=== PATIENT | male | born 1970 | race Hispanic/Latino ===

== ENCOUNTER 2017-05-28 22:47 | Emergency (ER) | payer SELFPAY ==
--- NOTE | 2017-05-29 00:17 | Emergency Department Report ---
ED Seizure HPI - General Chief Complaint: Seizure Stated Complaint: SEIZURE Time Seen by Provider: 05/29/17 00:12 Source: patient Mode of arrival: Ambulatory Limitations: No Limitations - History of Present Illness Initial Comments: Patient is a 47 years old male history of epilepsy on valproic acid came with one episode of seizure, patient fell and hit his head he sustained a laceration to his left cheek. Patient is back to normal. Patient stated that he is not taking his medication because is too expensive for him. MD Complaint: seizure -: minutes(s) Description of Episode: loss of consciousness, tonic-clonic movement, post- event confusion Witnessed:: Yes Trauma: Yes (head and face) Seizure History: known seizure disorder Place: home Possible Precipitating Event: head injury Associated Symptoms: denies other symptoms - Related Data Previous Rx's Medication Instructions Recorded Last Taken Type Cephalexin [Keflex] 500 mg PO Q8HR #28 cap 05/29/17 Unknown Rx Divalproex Sodium [Depakote] 500 mg PO DAILY #30 tablet. 05/29/17 Unknown Rx Ondansetron [Zofran Odt] 4 mg PO Q8HR PRN #14 tab.rapdis 05/29/17 Unknown Rx traMADol [Ultram 50 MG tab] 50 mg PO Q4HR PRN #14 tablet 05/29/17 Unknown Rx Allergies Allergy/AdvReac Type Severity Reaction Status Date / Time No Known Allergies Allergy Verified 05/29/17 00:47 ED Review of Systems ROS: Stated complaint: SEIZURE Other details as noted in HPI Comment: All other systems reviewed and negative Constitutional: denies: chills, fever Respiratory: denies: cough, orthopnea, shortness of breath Gastrointestinal: denies: abdominal pain, nausea, vomiting, diarrhea, constipation, hematemesis Genitourinary: denies: urgency, dysuria, frequency Musculoskeletal: denies: back pain, joint swelling Neurological: denies: headache, weakness, numbness, paresthesias ED Past Medical Hx - Past Medical History Additional medical history: epilepsy - Surgical History Additional Surgical History: R ankle - Social History Smoking Status: Current Every Day Smoker Substance Use Type: Alcohol - Medications Home Medications: Home Medications Medication Instructions Recorded Confirmed Last Taken Type Cephalexin [Keflex] 500 mg PO Q8HR #28 cap 05/29/17 Unknown Rx Divalproex Sodium [Depakote] 500 mg PO DAILY #30 tablet. 05/29/17 Unknown Rx Ondansetron [Zofran Odt] 4 mg PO Q8HR PRN #14 tab.greg 05/29/17 Unknown Rx traMADol [Ultram 50 MG tab] 50 mg PO Q4HR PRN #14 tablet 05/29/17 Unknown Rx ED Physical Exam - General Limitations: No Limitations General appearance: alert, in no apparent distress - Head Head exam: Present: other (5 cm laceration to the left cheek) - ENT ENT exam: Present: mucous membranes moist - Neck Neck exam: Present: normal inspection, full ROM. Absent: tenderness, meningismus - Respiratory Respiratory exam: Present: normal lung sounds bilaterally. Absent: wheezes, rales, rhonchi - Cardiovascular Cardiovascular Exam: Present: tachycardia - GI/Abdominal GI/Abdominal exam: Present: soft. Absent: tenderness, guarding, rebound, rigid , mass, bruit, pulsatile mass, hernia - Extremities Exam Extremities exam: Present: normal inspection, full ROM, normal capillary refill - Back Exam Back exam: Present: normal inspection, full ROM. Absent: tenderness, CVA tenderness (R), CVA tenderness (L) - Neurological Exam Neurological exam: Present: alert, oriented X3, CN II-XII intact, normal gait - Skin Skin exam: Present: warm, intact, normal color ED Course Vital Signs 05/28/17 05/29/17 22:56 00:54 Pulse Rate 110 H Respiratory 18 18 Rate Blood Pressure 177/118 O2 Sat by Pulse 98 Oximetry - Laceration /Wound Repair Cheek Wound Location: face Wound Length (cm): 5 Wound's Depth, Shape: irregular, flap, contused tissue Wound Explored: no foreign body removed Irrigated w/ Saline (ccs): 100 Betadine Prep?: Yes Anesthesia: 1% Lidocaine Volume Anesthetic (ccs): 5 Wound Debrided: minimal Wound Repaired With: sutures Suture Size/Type: 5:0 Number of Sutures: 7 Layer Closure?: No Sterile Dressing Applied?: Yes ED Medical Decision Making - Radiology Data Radiology results: report reviewed CT head/CT facial bone no acute abnormality Critical care attestation.: If time is entered above; I have spent that time in minutes in the direct care of this critically ill patient, excluding procedure time. ED Disposition Clinical Impression: Seizure, Laceration Disposition: [id number] TO HOME OR SELFCARE Is pt being admited?: No Condition: Stable Instructions: Suture Care (ED), Laceration (ED), Epilepsy (ED) Prescriptions: Cephalexin [Keflex] 500 mg PO Q8HR #28 cap Divalproex Sodium [Depakote] 500 mg PO DAILY #30 tablet. Ondansetron [Zofran Odt] 4 mg PO Q8HR PRN #14 tab.rapdis PRN Reason: Nausea And Vomiting traMADol [Ultram 50 MG tab] 50 mg PO Q4HR PRN #14 tablet PRN Reason: Pain
[2017-05-29] MEDS ORDERED: XYLOCAINE 2%/ EPI 1:200,000 INFILTRATI ONE (00:44)
[2017-05-29] MEDS ORDERED: XYLOCAINE 2% INFILTRATI ONE (00:45)
[2017-05-29] MEDS ORDERED: NACL 0.9% 500 ML IR ONE ×2 (00:46)
--- NOTE | 2017-05-29 01:07 | Cat Scan Report ---
FINAL REPORT PROCEDURE: CT FACIAL BONES WO CON TECHNIQUE: Computerized tomography of the facial bones and soft tissues with axial and coronal sections performed from the cranial aspect of the frontal sinuses to the caudal portion of the mandible without contrast material. HISTORY: traumatic fall, edema COMPARISON: No prior studies are available for comparison. FINDINGS: Bones: No significant abnormality. Paranasal sinuses: Clear. Soft tissues: There is bilateral facial soft tissue swelling. The there is laceration along the left mandible. There is right periorbital soft tissue swelling. There is no discrete hematoma. There is no foreign body.. 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 IMPRESSION: No acute bony abnormality is seen. There are soft tissue injuries as described. The paranasal sinuses are clear. The orbits are intact.
[2017-05-29] MEDS ORDERED: BOOSTRIX IM ONE (01:14)
[2017-05-29] MEDS ORDERED: ROCEPHIN IM ONE (01:15)
[2017-05-29] MEDS ORDERED: XYLOCAINE 1% MPF 5 mL INFILTRATI ONE (01:15)
[2017-05-29] MEDS ORDERED: ZOFRAN ODT PO ONE (01:16)
[2017-05-29] MEDS ORDERED: NORCO 5/325 PO ONE (01:16)
--- NOTE | 2017-05-29 01:18 | Cat Scan Report ---
FINAL REPORT PROCEDURE: CT HEAD/BRAIN WO CON TECHNIQUE: Computerized tomography of the head was performed without contrast material. HISTORY: fall, +LOC COMPARISON: No prior studies are available for comparison. FINDINGS: Skull and scalp: Normal. Paranasal sinuses: Normal. Ventricles and subarachnoid spaces: Normal. Cerebrum: No evidence of hemorrhage, acute infarction or mass . Cerebellum and brainstem: No evidence of hemorrhage, acute infarction or mass. Vasculature: Normal. Comments: None. IMPRESSION: Normal Examination
[2017-05-29] MEDS ORDERED: NACL 0.9% IR ONE (01:33)
[2017-05-29] MEDS ORDERED: XYLOCAINE 1% 20 mL INFILTRATI ONE (01:59)
[2017-05-29 02:33] VITALS: BP 128/72
== END 2017-05-29 02:25 | disposition home or self-care (01) ==
LOC: ED 22:47
DX: S01.81XA Laceration without foreign body of other part of head, initial encounter (principal); G40.909 Epilepsy, unspecified, not intractable, without status epilepticus; F17.210 Nicotine dependence, cigarettes, uncomplicated; W18.30XA Fall on same level, unspecified, initial encounter; Y93.89 Activity, other specified; Y92.89 Other specified places as the place of occurrence of the external cause; Y99.8 Other external cause status
CPT/HCPCS: 12013; 36415; 70450; 70486; 80164; 90471; 90715; 96372; 99284; J0696; Q0162

== ENCOUNTER 2017-06-05 09:49 | Emergency (ER) | payer SELFPAY ==
[2017-06-05 10:52] VITALS: BP 124/81
--- NOTE | 2017-06-05 11:04 | Emergency Department Report ---
Suture/Staple Removal - [facility] Chief Complaint: Laceration/Recheck/Suture Stated Complaint: SUTURE REMOVAL Time Seen by Provider: 06/05/17 10:59 When Sutures or Lexis Placed: 8-10 Days Ago Wound Location: left face ED Review of Systems ROS: Stated complaint: SUTURE REMOVAL Other details as noted in HPI Constitutional: denies: chills, fever Eyes: denies: eye pain, eye discharge, vision change ENT: denies: ear pain, throat pain Respiratory: denies: cough, shortness of breath, wheezing Cardiovascular: denies: chest pain, palpitations Endocrine: no symptoms reported Gastrointestinal: denies: abdominal pain, nausea, diarrhea Genitourinary: denies: urgency, dysuria Musculoskeletal: denies: back pain, joint swelling, arthralgia Skin: denies: rash, lesions Neurological: denies: headache, weakness, paresthesias Psychiatric: denies: anxiety, depression Hematological/Lymphatic: denies: easy bleeding, easy bruising ED Past Medical Hx - Past Medical History Previous Medical History?: Yes Additional medical history: epilepsy, head and face injury after a fall with sutures - Surgical History Past Surgical History?: Yes Additional Surgical History: R ankle, Right hand surgery - Social History Smoking Status: Current Every Day Smoker Substance Use Type: Alcohol, Prescribed - Medications Home Medications: Home Medications Medication Instructions Recorded Confirmed Last Taken Type Cephalexin [Keflex] 500 mg PO Q8HR #28 cap 05/29/17 Unknown Rx Divalproex Sodium [Depakote] 500 mg PO DAILY #30 tablet. 05/29/17 Unknown Rx Ondansetron [Zofran Odt] 4 mg PO Q8HR PRN #14 tab.rapdis 05/29/17 Unknown Rx traMADol [Ultram 50 MG tab] 50 mg PO Q4HR PRN #14 tablet 05/29/17 Unknown Rx Suture Removal Exam - Exam General: Vital signs noted. No distress. Alert and acting appropriately. My physical exam GENERAL: The patient is a well-developed, well-nourished female in no apparent distress. Patient is alert and acting appropriately for age. Alert and oriented 3, no apparent distress, normal gait, atraumatic. HEENT: Head is normocephalic and atraumatic. PERRL, Extraocular muscles are intact. Pupils are equal, round, and reactive to light and accommodation. Nares appeared normal. Mouth is well hydrated and without lesions. Mucous membranes are moist. Posterior pharynx clear of any exudate or lesions. Mouth is well hydrated and without lesions. Tonsils not erythematous or swollen. Uvula midline. Tongue elevated. Mucous members are moist. Posterior pharynx clear, no exudate or lesions. Patent airways. NECK: Supple. No carotid bruits. No lymphadenopathy or thyromegaly.nontender. No meningitic signs are noted. LUNGS: Clear to auscultation. Non labor breathing. No intercostal retractions. Symmetrical with respiration, no wheezing, no rales, or crackles. HEART: Regular rate and rhythm without murmur, rubs or gallops. No reproducible. S1, S2 present, regular rate and rhythm without murmur, no rubs, no gallops. ABDOMEN: Soft, nontender, and nondistended. Positive bowel sounds. No hepatosplenomegaly was noted. No guarding or rebound tenderness, negative epigastric bruit. Negative psoas sign, negative marrero sign, negative McBurneys sign EXTREMITIES: Without any cyanosis, clubbing, rash, lesions or edema. Peripheral pulses intact. Capillary refill less than 2 seconds. Full range of motion bilaterally. NEUROLOGIC: Cranial nerves II through XII are grossly intact. Alert and oriented x 3. Normal gait. Symmetrical strength and sensation. Reflexes 2+ throughout. Cerebellar testing normal. GCS score of 15. PSYCHIATRIC: Normal affect with no suicidal or homicidal ideations. Skin: 5 cm laceration with [address] with no dehisense present. No swelling, abscess or pus noted. Wound: No Pathologic Erythema, No Tenderness, No Drainage, No Pus, No Wound Dehiscence Other Systems: All other systems reviewed and are unremarkable. ED Course Vital Signs 06/05/17 10:48 Temperature 98.1 F Pulse Rate 99 H Respiratory 18 Rate Blood Pressure 124/81 O2 Sat by Pulse 97 Oximetry - Reevaluation(s) Reevaluation #1: 06/05/17 11:02 Patient is speaking in full sentences with no signs of distress noted. ED Recheck [facility] - Medical Decision Making 47-year-old male that presents with suture removal. Total of 7 stitches has been removed. Patient tolerated well. Patient states he is still taking antibiotics Keflex. Denies any pus, drainage or swelling. No cellulitis noted. I instructed the patient to continue taking antibiotics as prescribed. Patient was instructed Follow-up with a primary care doctor in 3-5 days or if symptoms worsen and continue return to emergency room as soon as possible. At time time of discharge, the patient does not seem toxic or ill in appearance. No acute signs of distress noted. Patient agrees to discharge treatment plan of care. No further questions noted by the patient. Critical care attestation.: If time is entered above; I have spent that time in minutes in the direct care of this critically ill patient, excluding procedure time. ED Disposition Clinical Impression: Visit for suture removal Disposition: - TO HOME OR SELFCARE Is pt being admited?: No Does the pt Need Aspirin: No Condition: Stable Instructions: Suture Removal (ED) Additional Instructions: Follow-up with a primary care doctor in 3-5 days or if symptoms worsen and continue return to emergency room as soon as possible. Continue taking antibiotics as prescribed due to first visit Referrals: SUSANNA IGLESIAS MD [Staff Physician] - 3-5 Days PRIMARY CAREMD [Referring] - 3-5 Days [facility] [Outside] - 3-[address] [facility] [Outside] - 3-5 Days
== END 2017-06-05 11:11 | disposition home or self-care (01) ==
LOC: ED 09:49
DX: S01.81XD Laceration without foreign body of other part of head, subsequent encounter (principal); G40.909 Epilepsy, unspecified, not intractable, without status epilepticus; F17.200 Nicotine dependence, unspecified, uncomplicated

== ENCOUNTER 2017-06-12 13:41 | Emergency (ER) | payer OTHER ==
--- NOTE | 2017-06-12 14:15 | Emergency Department Report ---
Chief Complaint: Headache Stated Complaint: HEADACHE - HPI History of Present Illness: This is a 47-year-old male nontoxic, well nourished in appearance, no acute signs of distress presents to the ED with c/o of intermittent headaches x2 weeks. Patient stated when he was at work the bright lights made his headache worse and when he wear dark glasses makes his headache subsided. Patient also stated she sees floaters in his right eye. Denies any numbness, tingling, fever , chills, facial drooping, decreased range of motion of other extremities, chest pain, shortness of breath, stiff neck, fever or chills. - Exam Vital Signs: Vital Signs 06/12/17 13:49 Temperature 98.5 F Pulse Rate 80 Respiratory 18 Rate Blood Pressure 134/91 O2 Sat by Pulse 97 Oximetry Physical Exam: GENERAL: The patient is a well-developed, well-nourished female in no apparent distress. Patient is alert and acting appropriately for age. Alert and oriented 3, no apparent distress, normal gait, atraumatic. NEUROLOGIC: Cranial nerves II through XII are grossly intact. Alert and oriented x 3. Normal gait. Symmetrical strength and sensation. Reflexes 2+ throughout. Cerebellar testing normal. GCS score of 15. PSYCHIATRIC: Normal affect with no suicidal or homicidal ideations. MSE screening note: Focused history and physical exam performed. Due to findings the following was ordered: 1- This initial assessment/diagnostic orders/clinical plan/ treatment(s) is/are subject to change based on pt's health status, clinical progression and re- assessment by fellow clinical providers in the ED. Further treatment and workup at subsequent clinical provers discretion. Patient/guardians urged not to elope from ED as their condition may be serious if not clinically assessed and managed. 2-CBC, UA, BMP ED Disposition for MSE Condition: Stable
[2017-06-12 15:11] LABS: Basophils % (Auto) 1.1 % (0.0-1.8); Eosinophils % (Auto) 1.8 % (0.0-4.3); Hematocrit 45.5 % (35.5-45.6); Hemoglobin 15.7 gm/dl (11.8-15.2); Mean Corpuscular HGB Conc 34 % (32-34); Mean Corpuscular Hemoglobin 32 pg (28-32); Mean Corpuscular Volume 94 fl (84-94); Platelet Count 290 K/mm3 (140-440); Red Blood Count 4.84 M/mm3 (3.65-5.03); Red Cell Distribution Width 13.6 % (13.2-15.2); White Blood Count 9.8 K/mm3 (4.5-11.0)
[2017-06-12 15:32] LABS: Anion Gap 19 mmol/L; BUN/Creatinine Ratio 11; Blood Urea Nitrogen 12 mg/dL (9-20); Calcium 9.6 mg/dL (8.4-10.2); Carbon Dioxide 26 mmol/L (22-30); Chloride 96.6 mmol/L (98-107); Glucose 75 mg/dL (75-100); Potassium 4.3 mmol/L (3.6-5.0); Sodium 137 mmol/L (137-145)
[2017-06-12 23:30] VITALS: BP 152/94
--- NOTE | 2017-06-13 00:02 | Cat Scan Report ---
FINAL REPORT PROCEDURE: CT head without contrast. TECHNIQUE: Computerized tomography of the head was performed without contrast material. HISTORY: Severe headache. COMPARISON: CT head 05/28/2017. FINDINGS: The ventricles are normal in size. The alvarez matter and white matter appear normal. There are no mass lesions. There is no intracranial hemorrhage. There are no signs of acute infarction. The calvarium appears intact. The mastoid air cells and paranasal sinuses are clear as far as visualized. IMPRESSION: Normal study.
--- NOTE | 2017-06-13 00:24 | Emergency Department Report ---
ED Headache HPI - General Chief Complaint: Headache Stated Complaint: HEADACHE Time Seen by Provider: 06/12/17 23:08 Source: patient Exam Limitations: no limitations - History of Present Illness Initial Comments: Patient initially has concussion 2 weeks ago but reportedly started having worse headache with eye pain and floaters. The lights at his work are reportedly the main source of his pain. He has not done brain rest but does report that overall his symptoms have improved except for the above mentioned symptoms. Timing/Duration: 1 week Quality: severe Head Injury Location: frontal Recent Head Trauma: head trauma > 24 hrs ago Modifying Factors: improves with: exposure to light Associated Symptoms: denies symptoms (denies any seizure active since 2 weeks ago.) Allergies/Adverse Reactions: Allergies phenytoin [From Dilantin] Allergy (Verified 06/12/17 13:49) Rash Home Medications: Ambulatory Orders Cephalexin [Keflex] 500 mg PO Q8HR #28 cap 05/29/17 Divalproex Sodium [Depakote] 500 mg PO DAILY #30 tablet. 05/29/17 Ondansetron [Zofran Odt] 4 mg PO Q8HR PRN #14 tab.rapdis 05/29/17 traMADol [Ultram 50 MG tab] 50 mg PO Q4HR PRN #14 tablet 05/29/17 ED Review of Systems ROS: Stated complaint: HEADACHE Other details as noted in HPI Constitutional: denies: chills, fever Eyes: denies: eye pain, eye discharge, vision change ENT: denies: ear pain, throat pain Respiratory: denies: cough, shortness of breath, wheezing Cardiovascular: denies: chest pain, palpitations Endocrine: no symptoms reported Gastrointestinal: denies: abdominal pain, nausea, diarrhea Genitourinary: denies: urgency, dysuria Musculoskeletal: denies: back pain, joint swelling, arthralgia Skin: denies: rash, lesions Neurological: headache. denies: weakness, paresthesias Psychiatric: denies: anxiety, depression Hematological/Lymphatic: denies: easy bleeding, easy bruising ED Past Medical Hx - Past Medical History Previous Medical History?: No Hx Seizures: Yes Additional medical history: epilepsy, head and face injury after a fall with sutures - Surgical History Past Surgical History?: Yes Additional Surgical History: R ankle, Right hand surgery - Social History Smoking Status: Current Every Day Smoker Substance Use Type: None - Medications Home Medications: Home Medications Medication Instructions Recorded Confirmed Last Taken Type Cephalexin [Keflex] 500 mg PO Q8HR #28 cap 05/29/17 Unknown Rx Divalproex Sodium [Depakote] 500 mg PO DAILY #30 tablet. 05/29/17 Unknown Rx Ondansetron [Zofran Odt] 4 mg PO Q8HR PRN #14 tab.rapdis 05/29/17 Unknown Rx traMADol [Ultram 50 MG tab] 50 mg PO Q4HR PRN #14 tablet 05/29/17 Unknown Rx ED Physical Exam - General Limitations: No Limitations General appearance: alert, in no apparent distress - Head Head exam: Present: atraumatic, normocephalic - Eye Eye exam: Present: normal appearance - ENT ENT exam: Present: mucous membranes moist - Neck Neck exam: Present: normal inspection - Respiratory Respiratory exam: Present: normal lung sounds bilaterally. Absent: respiratory distress - Cardiovascular Cardiovascular Exam: Present: regular rate, normal rhythm. Absent: systolic murmur, diastolic murmur, rubs, gallop - GI/Abdominal GI/Abdominal exam: Present: soft, normal bowel sounds - Rectal Rectal exam: Present: deferred - Extremities Exam Extremities exam: Present: normal inspection - Back Exam Back exam: Present: normal inspection - Neurological Exam Neurological exam: Present: alert, oriented X3, CN II-XII intact, normal gait, motor sensory deficit, reflexes normal - Psychiatric Psychiatric exam: Present: normal affect, normal mood - Skin Skin exam: Present: warm, dry, intact, normal color. Absent: rash ED Course Vital Signs 06/12/17 06/12/17 06/12/17 13:49 22:40 23:29 Temperature 98.5 F Pulse Rate 80 57 L Respiratory 18 20 18 Rate Blood Pressure 134/91 Blood Pressure 152/94 [Right] O2 Sat by Pulse 97 94 Oximetry ED Medical Decision Making - Lab Data Result diagrams: 06/12/17 14:36 06/12/17 14:36 Unremarkable labs. - Radiology Data Radiology results: report reviewed No acute process and no change from prior CT head. - Medical Decision Making Patient has history of seizures and reports not driving but going to work close by within 2 miles. He denies any recent seizures and his headaches and visual disturbance are likely from lack of brain rest post-concussion. He was encouraged to brain rest and referred to the [facility] website for traumatic brain injuries with reference to a second injury post-concussion. He reports that the only thing that is disturbing him right now is the lights at work. I have recommended he wear sunglasses at work to reduce the impact. Critical care attestation.: If time is entered above; I have spent that time in minutes in the direct care of this critically ill patient, excluding procedure time. ED Disposition Clinical Impression: Headache Qualifiers: Headache type: post-traumatic Headache chronicity pattern: acute headache Intractability: intractable Qualified Code(s): G44.311 - Acute post-traumatic headache, intractable Brain concussion Qualifiers: Encounter type: sequela Loss of consciousness presence/duration: without LOC Qualified Code(s): S06.0X0S - Concussion without loss of consciousness, sequela Disposition: - TO HOME OR SELFCARE Is pt being admited?: No Does the pt Need Aspirin: No Condition: Good Instructions: Post Concussion Syndrome (ED) Additional Instructions: Patient may return to work on but should wear tinted glasses to protect from the lighting at work. Patient should attempt as much brain rest as possible. Use tylenol and ibuprofen as needed. Referrals: VERO SEE MD [Staff Physician] - 3-5 Days Time of Disposition: 00:33
== END 2017-06-13 00:43 | disposition home or self-care (01) ==
LOC: ED 13:41
DX: G44.311 Acute post-traumatic headache, intractable (principal); S06.0X0S Concussion without loss of consciousness, sequela; R56.9 Unspecified convulsions; F17.200 Nicotine dependence, unspecified, uncomplicated; Z88.8 Allergy status to other drugs, medicaments and biological substances; X58.XXXS Exposure to other specified factors, sequela
CPT/HCPCS: 36415; 70450; 80048; 85025

== ENCOUNTER 2019-09-15 06:21 | Emergency (ER) | payer SELFPAY ==
[2019-09-15 06:26] VITALS: BP 123/76
--- NOTE | 2019-09-15 07:50 | Emergency Department Report ---
Minor Respiratory - HPI Chief Complaint: Upper Respiratory Infection Stated Complaint: COLD SYMPTOMS Time Seen by Provider: 09/15/19 07:11 Duration: 1 week Pain Location: Throat Severity: moderate Minor Respiratory: Yes Rhinorrhea, Yes Sore Throat, Yes Able to Tolerate Fluids, Yes Sick Contacts, Yes Fever, No Ear Pain, No Cough, No Hemoptysis, No Chest Pain, No Shortness of Breath Other History: This is a 49-year-old male who presents to the emergency room with a headache, sore throat, myalgia, nausea for 1 week. Patient reports subjective fever over the weekend that resolved with [id number] cold and flu medications. Past medical history of seizures. 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 He denies recent travel. He denies abdominal pain, diarrhea, chest pain, shortness of breath, or wheezing. ED Review of Systems ROS: Stated complaint: COLD SYMPTOMS Other details as noted in HPI Constitutional: fever. denies: chills ENT: throat pain, congestion. denies: ear pain, dental pain, hearing loss, epistaxis Respiratory: denies: cough, shortness of breath, wheezing Cardiovascular: denies: chest pain, palpitations Gastrointestinal: nausea. denies: abdominal pain, vomiting, diarrhea, hematemesis Genitourinary: denies: urgency, dysuria Musculoskeletal: myalgia. denies: back pain, joint swelling, arthralgia Skin: denies: rash, lesions Neurological: headache. denies: weakness, paresthesias Psychiatric: denies: anxiety, depression ED Past Medical Hx - Past Medical History Previous Medical History?: Yes Hx Seizures: Yes Additional medical history: epilepsy, head and face injury after a fall with sutures - Surgical History Past Surgical History?: Yes Additional Surgical History: R ankle, Right hand surgery, Rhinoplasty - Social History Smoking Status: Current Every Day Smoker Substance Use Type: Alcohol - Medications Home Medications: Home Medications Medication Instructions Recorded Confirmed Last Taken Type Divalproex Sodium [Depakote] 500 mg PO DAILY #30 tablet. 05/29/17 Unknown Rx Ondansetron [Zofran Odt] 4 mg PO Q8HR PRN #14 tab.rapdis 05/29/17 Unknown Rx cephALEXin [Keflex] 500 mg PO Q8HR #28 cap 05/29/17 Unknown Rx traMADoL [Ultram 50 MG tab] 50 mg PO Q4HR PRN #14 tablet 05/29/17 Unknown Rx Benzocaine/Menthol [Cepacol Sore 1 each MM Q2H PRN #20 lozenge 09/15/19 Unknown Rx Throat Lozenge] Ondansetron [Zofran Odt] 4 mg PO Q8HR PRN #20 tab.rapdis 09/15/19 Unknown Rx Penicillin V Potassium 500 mg PO BID #20 tablet 09/15/19 Unknown Rx Minor Respiratory Exam - Exam General: Vital signs noted. No distress. Alert and acting appropriately. HEENT: Yes Pharyngeal Erythema (Erythematous and enlarged tonsils with exudate, uvula midline), Yes Pharyngeal Exudates, Yes Moist Mucous Membranes, Yes Rhinorrhea (Turbinates congested with clear discharge), No Conjuctival Injection, No Frontal Tenderness, No Maxillary Tenderness Ear: Neither TM Bulge, Neither TM Erythema, Neither EAC Pain, Neither EAC Discharge Neck: Yes Supple, No Adenopathy Lungs: Yes Good Air Exchange, No Wheezes, No Ronchi, No Stridor, No Cough, No Labored Respirations, No Retractions, No Use of Accessory Muscles, No Other Abnormal Lung Sounds Heart: Yes Regular, No Murmur Abdomen: Yes Normal Bowel Sounds, No Tenderness, No Peritoneal Signs Skin: No Rash, No Edema Neurologic: Alert and oriented, no deficits. Musculoskeletal: Unremarkable. ED Course Vital Signs 09/15/19 06:25 Temperature 97.4 F L Pulse Rate 95 H Respiratory 18 Rate Blood Pressure 123/76 O2 Sat by Pulse 97 Oximetry ED Medical Decision Making - Medical Decision Making This is a 49 y.o. male that presents with sore throat, myalgia, headache, and nausea for 1 week. Patient examined by me and stable. No distress noted. On exam there is signs of pharyngitis. Centor score for strep throat 3 out of 4. Although patient is afebrile we will treat for acute pharyngitis. Start penicillin, Cepacol, and Zofran. Take Tylenol or ibuprofen for pain. Discussed plan with patient and he agreed with plan to treat outpatient. Discharged home stable with strict return instructions. Return to work tomorrow. Follow up with PCP in 48-72 hours. Critical care attestation.: If time is entered above; I have spent that time in minutes in the direct care of this critically ill patient, excluding procedure time. ED Disposition Clinical Impression: Sore throat Acute pharyngitis Qualifiers: Pharyngitis/tonsillitis etiology: unspecified etiology Qualified Code(s): J02.9 - Acute pharyngitis, unspecified Upper respiratory infection Qualifiers: URI type: acute pharyngitis Pharyngitis/tonsillitis etiology: other specified organisms Qualified Code(s): J02.8 - Acute pharyngitis due to other specified organisms Disposition: DC- TO HOME OR SELFCARE Is pt being admited?: No Condition: Stable Instructions: Pharyngitis (ED), Upper Respiratory Infection (ED) Additional Instructions: Expect symptoms to improve within 3 or 4 days. There is no need for bed rest or isolation. Use Tylenol or Ibuprofen for symptoms of sore throat, headache, and fever. Return to work in 24 hours of taking antibiotics. Follow up with Primary Care Provider in 48-72 hours. Prescriptions: Benzocaine/Menthol [Cepacol Sore Throat Lozenge] 1 each MM Q2H PRN #20 lozenge PRN Reason: Sore Throat Penicillin V Potassium 500 mg PO BID #20 tablet Ondansetron [Zofran Odt] 4 mg PO Q8HR PRN #20 tab.rapdis PRN Reason: Nausea And Vomiting Referrals: RIVAS SINCLAIR MD [Staff Physician] - 3-5 Days [facility] [Provider Group] - 3-5 Days [facility] [Provider Group] - 3-5 Days Forms: Work/School Release Form(ED) Time of Disposition: 07:52
== END 2019-09-15 08:00 | disposition home or self-care (01) ==
LOC: ED 06:21
DX: J02.9 Acute pharyngitis, unspecified (principal); F17.200 Nicotine dependence, unspecified, uncomplicated
CPT/HCPCS: 99282

== ENCOUNTER 2019-10-22 11:19 | Emergency (ER) | payer OTHER ==
[2019-10-22 11:35] VITALS: BP 133/78
--- NOTE | 2019-10-22 13:10 | Emergency Department Report ---
ED Lower Extremity HPI - General Chief Complaint: Extremity Problem,Nontraumatic Stated Complaint: (R) ANKLE PAIN Time Seen by Provider: 10/22/19 13:05 Source: patient Mode of arrival: Ambulatory Limitations: No Limitations - History of Present Illness Initial Comments: 49-year-old [place] presents to the emergency room complaining of bilateral ankle pain. Patient states that his right ankle he had injured it in the past and has hardware. Patient complains of his left foot where his toes hyperextended yesterday. Patient states that when he walks the pain is a 10 out of 10 at rest is 6 out of 10. Patient states he has been taking aspirin for pain management. Patient reports he does not have any money to buy ibuprofen or Tylenol. Patient does not remember who his orthopedic provider that did his surgery on his right ankle. Past medical history of seizures. Allergy to Phenytoin. MD Complaint: ankle injury, foot injury Onset/Timin -: days(s) Injury: Ankle: Right, Foot: Left Type of Injury: hyperextension (Left foot) Place: street/outdoors Severity scale (0 -10): 7 Improves With: nothing Worsens With: weight bearing Associated Symptoms: swelling (Left foot), ambulatory - Related Data Previous Rx's Medication Instructions Recorded Last Taken Type Divalproex Sodium [Depakote] 500 mg PO DAILY #30 tablet. 05/29/17 Unknown Rx Ondansetron [Zofran Odt] 4 mg PO Q8HR PRN #14 tab.rapdis 05/29/17 Unknown Rx cephALEXin [Keflex] 500 mg PO Q8HR #28 cap 05/29/17 Unknown Rx traMADoL [Ultram 50 MG tab] 50 mg PO Q4HR PRN #14 tablet 05/29/17 Unknown Rx Benzocaine/Menthol [Cepacol Sore 1 each MM Q2H PRN #20 lozenge 09/15/19 Unknown Rx Throat Lozenge] Ondansetron [Zofran Odt] 4 mg PO Q8HR PRN #20 tab.rapdis 09/15/19 Unknown Rx Penicillin V Potassium 500 mg PO BID #20 tablet 09/15/19 Unknown Rx Allergies Allergy/AdvReac Type Severity Reaction Status Date / Time phenytoin [From Dilantin] Allergy Rash Verified 06/12/17 13:49 ED Review of Systems ROS: Stated complaint: (R) ANKLE PAIN Other details as noted in HPI Comment: All other systems reviewed and negative ED Past Medical Hx - Past Medical History Previous Medical History?: No Hx Sickle Cell Disease: Yes Hx Seizures: Yes Additional medical history: epilepsy, head and face injury after a fall with sutures - Surgical History Past Surgical History?: Yes Additional Surgical History: R ankle, Right hand surgery, Rhinoplasty - Social History Smoking Status: Never Smoker Substance Use Type: None - Medications Home Medications: Home Medications Medication Instructions Recorded Confirmed Last Taken Type Divalproex Sodium [Depakote] 500 mg PO DAILY #30 tablet.dr 05/29/17 Unknown Rx Ondansetron [Zofran Odt] 4 mg PO Q8HR PRN #14 tab.rapdis 05/29/17 Unknown Rx cephALEXin [Keflex] 500 mg PO Q8HR #28 cap 05/29/17 Unknown Rx traMADoL [Ultram 50 MG tab] 50 mg PO Q4HR PRN #14 tablet 05/29/17 Unknown Rx Benzocaine/Menthol [Cepacol Sore 1 each MM Q2H PRN #20 lozenge 09/15/19 Unknown Rx Throat Lozenge] Ondansetron [Zofran Odt] 4 mg PO Q8HR PRN #20 tab.rapdis 09/15/19 Unknown Rx Penicillin V Potassium 500 mg PO BID #20 tablet 09/15/19 Unknown Rx ED Physical Exam - General Limitations: No Limitations General appearance: alert, in no apparent distress - Head Head exam: Present: atraumatic, normocephalic - Eye Eye exam: Present: normal appearance - ENT ENT exam: Present: mucous membranes moist - Expanded Upper Extremity Exam Right Shoulder Exam: Present: normal inspection - Expanded Lower Extremity Exam Left Hip exam: Present: normal inspection Upper Leg exam: Present: normal inspection Knee exam: Present: normal inspection Lower Leg exam: Present: normal inspection Ankle exam: Present: normal inspection Foot/Toe exam: Present: tenderness (With hyperextension), swelling (Mild) Right Hip exam: Present: normal inspection Upper Leg exam: Present: normal inspection Knee exam: Present: normal inspection Lower Leg exam: Present: normal inspection Ankle exam: Present: full ROM, tenderness. Absent: swelling, erythema (At the bony apparatus from rubbing of his boots) - Back Exam Back exam: Present: normal inspection - Neurological Exam Neurological exam: Present: alert, oriented X3 - Psychiatric Psychiatric exam: Present: normal affect, normal mood - Skin Skin exam: Present: warm, dry, intact, normal color. Absent: rash ED Course Vital Signs 10/22/19 11:34 Temperature 98.8 F Pulse Rate 83 Respiratory 18 Rate Blood Pressure 133/78 O2 Sat by Pulse 97 Oximetry ED Lower Extremity MDM - Radiology Data Radiology results: report reviewed Print Report Referring Physician:ZIA HARRISPatient Name:NEEL WHITEPatient ID:[id number] of :[id number]:MaleAccession:[id number] Date:[id number] Status:Finalized Findings [facility] [address] [place] [address] XRay Report Signed Patient: NEEL WHITE MR#: [id number] : 1970 Acct:[id number] Age/Sex: 49 / M ADM Date: 10/22/19 Loc: ED Attending Dr: Ordering Physician: MARV PENG Date of Service: 10/22/19 Procedure(s): XR foot 2V LT Accession Number(s): [id number] cc: MARV PENG Fluoro Time In Minutes: LEFT FOOT 3 VIEWS INDICATION: MAIN: foot hyperextended X 2 DAYS. COMPARISON: No relevant prior imaging study available. FINDINGS: No acute, displaced fracture location is seen. No foreign bodies. No significant degenerative changes. IMPRESSION: 1. No acute findings. Signer Name: Jassi Elmore MD Signed: 10/22/2019 1:36 PM Workstation Name: [id number] Transcribed By: BENTON Dictated By: Jassi Elmore MD Electronically Authenticated By: Jassi Elmore MD Signed Date/Time: 10/22/19 1336 DD/ 1335 TD/TT: Critical care attestation.: If time is entered above; I have spent that time in minutes in the direct care of this critically ill patient, excluding procedure time. ED Disposition Clinical Impression: Chronic pain of right ankle Injury of left foot including toes Qualifiers: Encounter type: initial encounter Qualified Code(s): S99.922A - Unspecified injury of left foot, initial encounter Disposition: DC-01 TO HOME OR SELFCARE Is pt being admited?: No Does the pt Need Aspirin: No Condition: Stable Additional Instructions: X-ray is negative for any acute finding. I recommend for you to follow-up at orthopedic provider you can take [id number] Tylenol or ibuprofen for pain management. Referrals: PRIMARY CAREMD [Primary Care Provider] - 3-5 Days TOM SOTO MD [Staff Physician] - 3-5 Days Forms: Work/School Release Form(ED)
--- NOTE | 2019-10-22 13:41 | XRay Report ---
LEFT FOOT 3 VIEWS INDICATION: MAIN: foot hyperextended X 2 DAYS. COMPARISON: No relevant prior imaging study available. FINDINGS: No acute, displaced fracture location is seen. No foreign bodies. No significant degenerative changes . IMPRESSION: 1. No acute findings. Signer Name: Jassi Elmore MD Signed: 10/22/2019 1:36 PM Workstation Name: [id number]
== END 2019-10-22 14:35 | disposition home or self-care (01) ==
LOC: ED 11:19
DX: S99.922A Unspecified injury of left foot, initial encounter (principal); M25.571 Pain in right ankle and joints of right foot; G89.29 Other chronic pain; Z98.890 Other specified postprocedural states; Z79.899 Other long term (current) drug therapy; Z86.69 Personal history of other diseases of the nervous system and sense organs; Z88.8 Allergy status to other drugs, medicaments and biological substances; X58.XXXA Exposure to other specified factors, initial encounter; Y93.89 Activity, other specified; Y92.89 Other specified places as the place of occurrence of the external cause; Y99.8 Other external cause status
CPT/HCPCS: 99283

== ENCOUNTER 2019-10-29 10:52 | Emergency (ER) | payer SELFPAY ==
[2019-10-29 11:04] VITALS: BP 136/84
--- NOTE | 2019-10-29 12:33 | Emergency Department Report ---
Chief Complaint: Extremity Injury, Lower Stated Complaint: WAS HERE LAST WEEK/FOOT PAIN Time Seen by Provider: 10/29/19 12:27 - HPI History of Present Illness: This 49-year-old male presents the ED complaining of left foot pain that began throbbing 4 days ago. Patient states he had a injury a week and a half ago and was seen here and told to follow-up. Patient states he had a work note up until the 10th but started having some throbbing to 3 days ago. Patient denies any reinjury to the foot. He denies fever/chills/difficulty walking. Patient states he is able to ambulate appropriately without any problems. - ROS Review of Systems: As noted in HPI - Exam Vital Signs: Vital Signs 10/29/19 11:00 Temperature 98.0 F Pulse Rate 82 Respiratory 20 Rate Blood Pressure 136/84 O2 Sat by Pulse 99 Oximetry Physical Exam: GENERAL: Alert and oriented x3, no apparent distress, Normal Gait, atraumatic. HEAD: Head is normocephalic and a-traumatic. EXTREMITIES/MUSCULOSKELETAL: No cyanosis, clubbing, rash, lesions or edema. Full ROM bilaterally. LE Pulses 2+ bilaterally. LE 5+ strength bilaterally, SKIN: Warm and dry, No lesions, No ulceration or induration present. MSE screening note: Focused history and physical exam performed. Due to findings the following was ordered: ED Medical Decision Making - Medical Decision Making 49-year-old male presents with left foot pain from mild injury from last week. Reviewed note from last visit. Patient x-rays no fracture noted. I discussed with patient he needs to follow-up with primary care physician on referrals as given. Referral was given to patient today and discussed to follow-up with primary care. There was no swelling to the foot or any form of injuries noted. I discussed with patient to keep taking Motrin as needed for pain and follow-up. ED Disposition for MSE Clinical Impression: Chronic pain of right ankle Disposition: Z- MED SCREENING EXAM-LEFT Is pt being admited?: No Does the pt Need Aspirin: No Condition: Stable Instructions: Arthralgia (ED) Additional Instructions: Make sure to follow up with the primary care physician as discussed. Take all Motrin as needed for pain If you have any worsening symptoms or develop new symptoms please return to ED immediately. Referrals: PRIMARY CARE, [Primary Care Provider] - 3-5 Days [facility] [Outside] - 3-5 Days [facility] [Outside] - 3-5 Days TOM SOTO MD [Staff Physician] - 3-5 Days Forms: Work/School Release Form(ED) Time of Disposition: 12:29
== END 2019-10-29 13:00 | disposition left against medical advice (07) ==
LOC: ED 10:52
DX: M25.572 Pain in left ankle and joints of left foot (principal)
CPT/HCPCS: 99281